=== PATIENT | female | born 2000 | race Two or more races ===

== ENCOUNTER 2018-09-24 15:40 | Emergency (ER) | payer MEDICAID ==
[~2018-09-24] VITALS: Ht 154.9 cm; Wt 113.0 kg
[2018-09-24 15:49] VITALS: BP 130/88
== END 2018-09-24 17:03 | disposition home or self-care (01) ==
LOC: ED 16:45
DX: S83.92XA Sprain of unspecified site of left knee, initial encounter (principal); W01.0XXA Fall on same level from slipping, tripping and stumbling without subsequent striking against object, initial encounter; Y93.89 Activity, other specified; Y92.89 Other specified places as the place of occurrence of the external cause; Y99.8 Other external cause status
CPT/HCPCS: 29505; 99283

== ENCOUNTER 2018-11-04 14:40 | Emergency (ER) | payer MEDICAID ==
[~2018-11-04] VITALS: Ht 154.9 cm; Wt 113.3 kg
--- NOTE | 2018-11-04 14:49 | NUR ---
Pt assessed. Reports body aches, particularily "on the bones in my right arm" that started 2 days ago. Pt also reports blurry vision and headaches that started yesterday. Denies N/V. Pt denies fever. Pt denies any sig medical hx, will cont to monitor. NAD at this time. Family at BS
[2018-11-04] MEDS ORDERED: KETOROLAC 30 MG/1 ML ONE (15:05)
--- NOTE | 2018-11-04 15:08 | NUR ---
Finger stick 227, pt just had caramel frappaccino drink MD KYLE aware. Medicated as ordered
[2018-11-04 15:11] VITALS: BP 133/69
[2018-11-04] MEDS ORDERED: KETOROLAC 30 MG/1 ML IM ONE (16:00)
== END 2018-11-04 15:27 | disposition home or self-care (01) ==
LOC: ED 15:11
DX: G43.C0 Periodic headache syndromes in child or adult, not intractable (principal); M79.10 Myalgia, unspecified site
CPT/HCPCS: 82962; 96372; 99283; J1885

== ENCOUNTER 2018-11-04 23:18 | Emergency (ER) | payer MEDICAID ==
[~2018-11-04] VITALS: Ht 154.9 cm; Wt 113.4 kg
[2018-11-04 23:26] VITALS: BP 96/68
--- NOTE | 2018-11-05 | NUR ---
pt in hospital gown. pt ambulatory with tech steadily to rad for scans
[2018-11-05] MEDS ORDERED: ONDANSETRON ODT 4 MG ONE (00:21)
[2018-11-05] MEDS ORDERED: ONDANSETRON ODT 4 MG PO ONE (00:30)
[2018-11-05 00:35] LABS: BASOPHILS # (AUTO) 0.07 x10^3/uL (0-0.3); BASOPHILS % (AUTO) 1 % (0-1); EOSINOPHILS # (AUTO) 0.23 x10^3/uL (0-0.8); EOSINOPHILS % (AUTO) 2 % (1-7); LYMPHOCYTES % (AUTO) 24 % (22-44); MD NO; MEAN CORPUSCULAR HGB CONC 34.2 g/dL (32.4-35.8); MEAN CORPUSCULAR VOLUME 87.8 fL (80-100); MEAN PLATELET VOLUME 8.4 fL (7.4-10.4); MONOCYTES # (AUTO) 0.62 x10^3/uL (0-1.4); MONOCYTES % (AUTO) 6 % (2-9); NEUTROPHILS # (AUTO) 7.01 x10^3/uL (1.8-8.0); NEUTROPHILS % (AUTO) 67 % (42-75); PLATELET COUNT 359 x10^3/uL (130-400); RED CELL DISTRIBUTION WIDTH 13.2 % (9.6-15.2)
--- NOTE | 2018-11-05 00:43 | NUR ---
UA AND STOOL SAMPLES COLLECTED AND WALKED TO LAB.
[2018-11-05 00:45] LABS: ALANINE AMINOTRANSFERASE 51 U/L (12-78); ALBUMIN 3.8 g/dL (3.4-5.0); ANION GAP 9 mmol/L (5-15); CALCIUM 9.5 mg/dL (8.5-10.1); CHLORIDE 112 mmol/L (98-107); CREATININE 0.76 mg/dL (0.55-1.02)
[2018-11-05 00:48] LABS: MICROSCOPIC AUTO
[2018-11-05 00:50] LABS: ALKALINE PHOSPHATASE 81 U/L (45-117); BILIRUBIN,TOTAL 0.5 mg/dL (0.2-1.0); TOTAL PROTEIN 8.3 g/dL (6.4-8.2)
[2018-11-05 00:50] LABS: CULTURE INDICATED? YES
[2018-11-05 01:13] LABS: CLOSTRIDIUM DIFFICILE ANTIGEN NEGATIVE; CLOSTRIDIUM DIFFICILE TOXIN NEGATIVE (Negative)
== END 2018-11-05 01:53 | disposition home or self-care (01) ==
LOC: ED 11-05 00:03
DX: R10.12 Left upper quadrant pain (principal); R10.11 Right upper quadrant pain; R11.2 Nausea with vomiting, unspecified; R19.7 Diarrhea, unspecified; B34.9 Viral infection, unspecified
CPT/HCPCS: 36415; 72072; 80053; 81001; 83690; 84703; 85025; 87086; 87324; 89055; 99284